=== PATIENT | female | born 1960 | race Caucasian/White ===

== ENCOUNTER 2021-11-29 18:42 | Inpatient (IN) | payer MEDICARE ==
[~2021-11-29] VITALS: Ht 165.1 cm; Wt 104.4 kg
[~2021-11-29 18:42] MED LIST: 3IN1 COMMODE; ATARAX25 MG PO; ATIVAN1 MG PO; BUSPAR5 MG PO; CARAFATE1 G1 PO; DICLOFENAC TOP; EFFEXOR XR 3737.5 MG PO; ELMIRON100 MG PO; FLEXERIL10 MG PO; FLEXERIL5 MG PO; FLONASE ALLER15.8 ML; GABAPENTIN TOP; HYDROCODON-ACE1 EAC1 PO; KETOROLAC TROME10 MG PO; KLOR-CON M2020 MEQ PO; LYRICA75 MG PO; MAG-OXIDE 400M400 MG PO; MEDROL4 MG PO; NEURONTIN300 MG PO; NORCO 5-325 TA1 EACH PO; PERCOCET 5-3251 EACH PO; POTASSIUM CHLO20 ME2 PO; PROTONIX 40MG T40 MG PO; SYNTHROID50 MCG PO; TRAMADOL HCL E200 MG PO; TRIAMTERENE-HC1 EAC3 PO; VITAMIN B12-FO1 EACH PO; VITAMIN B122500 MCG PO; VITAMIN D31000 UNI1 PO; VITAMIN D325 MC2 PO; VOLTAREN **OUT75 MG PO; ZOFRAN4 MG PO; ZOVIRAX200 MG PO; ZPAK PO
[2021-11-29 19:00] LABS: BASOPHIL 0.3 % (0-2); EOSINOPHIL 0.5 % (0-5); HCT 39.8 % (37.0-47.0); HGB 13.2 g/dl (12.5-16.0); LYMPHOCYTE 9.1 % (15-48); MCH 27.6 pg (25.0-31.0); MCHC 33.2 g/dL (32.0-36.0); MCV 83.1 fL (78.0-100.0); MONOCYTE 5.6 % (0-12); MPV 10.3 fL (6.0-9.5); NEUTROPHIL 84.1 % (41-80); NRBC 0; PLT 219 K/uL (150-400); RBC 4.79 M/uL (4.20-5.40); RDW 13.4 % (11.5-14.0); WBC 15.4 K/uL (4.0-10.5)
[2021-11-29 19:29] LABS: ALBUMIN 3.8 g/dL (3.4-5.0); BILIRUBIN - TOTAL 1.3 mg/dL (0.2-1.0); BUN/CREAT RATIO (CALC) 18.9 RATIO; CREATININE 1.11 mg/dL (0.51-0.95); POTASSIUM 3.6 mmol/L (3.5-5.1); TOTAL PROTEIN 7.8 g/dL (6.4-8.2)
[2021-11-29 19:59] LABS: CORONAVIRUS 2019 SARS-COV-2 NEGATIVE (NEGATIVE); INFLUENZA A NAA NEGATIVE (NEGATIVE)
[2021-11-29 20:51] LABS: BILIRUBIN NEGATIVE (NEGATIVE); BLOOD 1+ Ery/uL (NEGATIVE); CLARITY CLEAR (CLEAR); COLOR YELLOW (YELLOW); GLUCOSE (U) NORMAL (NORMAL); LEUKOCYTES 2+ Leu/uL (NEGATIVE); NITRITE POSITIVE (NEGATIVE); PROTEIN NEGATIVE (NEGATIVE); SPECIFIC GRAVITY <=1.005 (1.001-1.030); UROBILINOGEN 0.2 mg/dL (0.2-1.0)
[2021-11-29 21:08] LABS: URINARY WBC 20-50
[2021-11-29 21:09] LABS: BACTERIA 2+
[2021-11-30] MEDS ORDERED: OMEPRAZOLE10 MG PO (00:41)
[2021-11-30] MEDS ORDERED: FLONASE ALLER15.8 ML (00:42)
[2021-11-30] MEDS ORDERED: CRESTOR5 MG PO (00:43)
[2021-11-30] MEDS ORDERED: PYRIDIUM200 MG PO (00:45)
[2021-11-30] MEDS ORDERED: PROVENTIL HFA6.7 GM INH (00:45)
[2021-11-30] MEDS ORDERED: ZYRTEC10 MG PO (00:46)
[2021-11-30] MEDS ORDERED: CARAFATE1 GM PO (00:48)
[2021-11-30] MEDS ORDERED: DICLOFENAC35 MG PO (00:49)
[2021-11-30 05:40] LABS: BASOPHIL 0.3 % (0-2); EOSINOPHIL 1.2 % (0-5); HCT 37.1 % (37.0-47.0); HGB 12.2 g/dl (12.5-16.0); MCH 27.7 pg (25.0-31.0); MCHC 32.9 g/dL (32.0-36.0); MCV 84.3 fL (78.0-100.0); MONOCYTE 7.6 % (0-12); MPV 10.3 fL (6.0-9.5); NEUTROPHIL 69.6 % (41-80); NRBC 0; PLT 201 K/uL (150-400); RDW 13.4 % (11.5-14.0); WBC 11.9 K/uL (4.0-10.5)
[2021-11-30 06:22] LABS: ALBUMIN 3.3 g/dL (3.4-5.0); BILIRUBIN - TOTAL 1.2 mg/dL (0.2-1.0); BUN/CREAT RATIO (CALC) 17.6 RATIO; C-REACTIVE PROTEIN 13.9 mg/dL (<=0.90); CKMB 3.9 ng/mL (0.0-3.6); CREATININE 1.02 mg/dL (0.51-0.95); FT4 (FREE T4) 1.3 ng/dL (0.76-1.46); GLOBULIN (CALCULATION) 3.6 g/dL; MAGNESIUM 2.1 mg/dL (1.8-2.4); PHOSPHORUS 3.4 mg/dL (2.6-4.7); POTASSIUM 3.6 mmol/L (3.5-5.1); TOTAL PROTEIN 6.9 g/dL (6.4-8.2)
[2021-11-30] MEDS ORDERED: COLACE100 MG PO (15:11)
--- NOTE | 2021-11-30 16:42 | NUR ---
11/30/21 Ms. Mcclendon lives alone. She was 4 years ago. She had 3 children; 2 are living. Her sister and 2 choldren are supportive. - Ms. Mcclendon has a 3in1, rw, and cane. PCP = Dr. Pardo. - Ms. Mcclendon reports plans to attend the bereavement group at [place] and to attend [employer] 2 days per week. She is supported by [facility] and able to meet her financial obligations. - Will monitor for 02 needs.
[2021-12-01 06:28] LABS: BASOPHIL 0.4 % (0-2); EOSINOPHIL 3.2 % (0-5); HCT 35.2 % (37.0-47.0); LYMPHOCYTE 28.5 % (15-48); MCH 27.1 pg (25.0-31.0); MCHC 31.3 g/dL (32.0-36.0); MCV 86.7 fL (78.0-100.0); MPV 10.7 fL (6.0-9.5); NEUTROPHIL 58.6 % (41-80); NRBC 0; PLT 164 K/uL (150-400); RBC 4.06 M/uL (4.20-5.40); RDW 13.6 % (11.5-14.0)
[2021-12-01 06:51] LABS: BUN/CREAT RATIO (CALC) 15.7 RATIO; CREATININE 0.89 mg/dL (0.51-0.95); POTASSIUM 3.7 mmol/L (3.5-5.1)
[2021-12-03 06:45] LABS: BASOPHIL 0.5 % (0-2); EOSINOPHIL 5.2 % (0-5); HCT 32.3 % (37.0-47.0); HGB 10.3 g/dl (12.5-16.0); LYMPHOCYTE 38.3 % (15-48); MCH 27.5 pg (25.0-31.0); MCHC 31.9 g/dL (32.0-36.0); MCV 86.1 fL (78.0-100.0); MONOCYTE 7.2 % (0-12); MPV 10.3 fL (6.0-9.5); NEUTROPHIL 48.4 % (41-80); NRBC 0; PLT 218 K/uL (150-400); RBC 3.75 M/uL (4.20-5.40); RDW 13.4 % (11.5-14.0); WBC 5.6 K/uL (4.0-10.5)
[2021-12-03 07:17] LABS: BUN/CREAT RATIO (CALC) 15.2 RATIO; CREATININE 0.79 mg/dL (0.51-0.95); POTASSIUM 4.4 mmol/L (3.5-5.1)
[2021-12-03] MEDS ORDERED: CEFTIN250 MG PO (09:55)
[2021-12-03] MEDS ORDERED: VALTREX1000 MG PO (09:55)
== END 2021-12-03 13:37 | disposition home or self-care (01) | DRG 872 ==
LOC: FER 18:42 → FMS 22:50
PROVIDERS: Emergency Medicine; Internal Medicine; Nurse Practitioner; ADMIT Internal Medicine
DX: A41.51 Sepsis due to Escherichia coli [E. coli] (principal); N30.01 Acute cystitis with hematuria; J98.11 Atelectasis; Z20.822 Contact with and (suspected) exposure to COVID-19; M54.9 Dorsalgia, unspecified; R91.8 Other nonspecific abnormal finding of lung field; G89.29 Other chronic pain; E78.5 Hyperlipidemia, unspecified; I10 Essential (primary) hypertension; E03.9 Hypothyroidism, unspecified; F41.0 Panic disorder [episodic paroxysmal anxiety]; K21.9 Gastro-esophageal reflux disease without esophagitis; F41.9 Anxiety disorder, unspecified; G47.00 Insomnia, unspecified; Z79.899 Other long term (current) drug therapy; Z88.2 Allergy status to sulfonamides; Z88.5 Allergy status to narcotic agent; Z88.8 Allergy status to other drugs, medicaments and biological substances; Z87.891 Personal history of nicotine dependence; Z82.49 Family history of ischemic heart disease and other diseases of the circulatory system
CPT/HCPCS: 36415; 70450; 71045; 71250; 71275; 80048; 80053; 80061; 81001; 82553; 83036; 83605; 83735; 83880; 84100; 84145; 84439; 84443; 84484; 85025; 85379; 86140; 87040; 87076; 87077; 87088; 87186; 93005; 94010; 94640; 94762; G0378; J0696; J0780; J1170; J1650; J2405; J2543; J7120; Q9967; U0002

== ENCOUNTER 2021-12-11 17:29 | Emergency (ER) | payer MEDICARE ==
[~2021-12-11 17:29] MED LIST changes: +CARAFATE1 GM PO; +CEFTIN250 MG PO; +COLACE100 MG PO; +CRESTOR5 MG PO; +DICLOFENAC35 MG PO; +OMEPRAZOLE10 MG PO; +PROVENTIL HFA6.7 GM INH; +PYRIDIUM200 MG PO; +VALTREX1000 MG PO; +ZYRTEC10 MG PO
[2021-12-11 18:33] LABS: BASOPHIL 0.5 % (0-2); HCT 38.6 % (37.0-47.0); HGB 12.6 g/dl (12.5-16.0); LYMPHOCYTE 30.1 % (15-48); MCH 27.2 pg (25.0-31.0); MCHC 32.6 g/dL (32.0-36.0); MCV 83.2 fL (78.0-100.0); MONOCYTE 4.4 % (0-12); MPV 9.9 fL (6.0-9.5); NEUTROPHIL 61.7 % (41-80); NRBC 0; PLT 297 K/uL (150-400); RBC 4.64 M/uL (4.20-5.40); RDW 13.4 % (11.5-14.0); WBC 10.4 K/uL (4.0-10.5)
[2021-12-11 18:46] LABS: ALBUMIN 3.6 g/dL (3.4-5.0); BILIRUBIN - TOTAL 0.4 mg/dL (0.2-1.0); CREATININE 0.77 mg/dL (0.51-0.95); GLOBULIN (CALCULATION) 3.9 g/dL; POTASSIUM 3.7 mmol/L (3.5-5.1); TOTAL PROTEIN 7.5 g/dL (6.4-8.2)
[2021-12-11 18:51] LABS: LACTIC ACID 1.5 mmol/L (0.4-1.9)
[2021-12-11 19:14] LABS: BILIRUBIN NEGATIVE (NEGATIVE); BLOOD NEGATIVE Ery/uL (NEGATIVE); CLARITY CLEAR (CLEAR); COLOR YELLOW (YELLOW); GLUCOSE (U) NORMAL (NORMAL); LEUKOCYTES NEGATIVE Leu/uL (NEGATIVE); NITRITE NEGATIVE (NEGATIVE); PROTEIN NEGATIVE (NEGATIVE); SPECIFIC GRAVITY 1.015 (1.001-1.030); UROBILINOGEN 0.2 mg/dL (0.2-1.0)
[2021-12-11 19:51] LABS: CORONAVIRUS 2019 SARS-COV-2 NEGATIVE (NEGATIVE); INFLUENZA A NAA NEGATIVE (NEGATIVE)
== END 2021-12-11 21:25 | disposition home or self-care (01) ==
LOC: FER 17:29
PROVIDERS: Emergency Medicine
DX: R07.89 Other chest pain (principal); M79.10 Myalgia, unspecified site; R30.0 Dysuria; R65.10 Systemic inflammatory response syndrome (SIRS) of non-infectious origin without acute organ dysfunction; I10 Essential (primary) hypertension; F17.200 Nicotine dependence, unspecified, uncomplicated; Z88.2 Allergy status to sulfonamides; Z88.8 Allergy status to other drugs, medicaments and biological substances; Z88.5 Allergy status to narcotic agent; Z20.822 Contact with and (suspected) exposure to COVID-19
CPT/HCPCS: 36415; 71045; 80053; 81001; 83605; 83880; 84484; 85025; 86140; 87040; 87088; 93005; J1885; J2543; J3370; J7030; J7050; U0002